=== PATIENT | female | born 1960 | race Caucasian/White ===

== ENCOUNTER 2021-08-25 16:59 | Inpatient (IN) ==
[2021-08-25] MEDS ORDERED: SODIUM CHLORIDE 0.9% 1,000 ML IV STA (18:21)
[2021-08-25] MEDS ORDERED: ONDANSETRON 4 MG/2 ML VIAL IV ONE (18:34)
[2021-08-25] MEDS ORDERED: MORPHINE 2 MG/1 ML SYRINGE IV STA (18:34)
[2021-08-25 18:35] LABS: Basophils # 0.1 10*3/uL (0.0-0.2); Basophils % 0.3 % (0.0-0.8); Hematocrit 47.5 VOL% (35.7-47.0); Hemoglobin 15.8 GM/DL (12.0-16.0); Immature Granulocytes % 0.4 %; Immature Granulocytes Absolute 0.09 #; Lymphocytes % 9.8 % (21.3-54.2); Mean Corpuscular HGB Conc 33.3 GM/DL (32-36); Mean Corpuscular Volume 90.6 FL (87-102); Mean Platelet Volume 10.8 FL (9.6-12.0); Monocytes % 6.2 % (1.7-12.7); Neutrophils % 83.3 % (38.7-73.9); Platelet Count 350 T/CUMM (130-400); Red Blood Count 5.24 MC/CUMM (3.8-5.5); Red Cell Distribution Width 14.6 % (9.3-17.3); White Blood Count 20.3 T/CUMM (4-12)
[2021-08-25 18:47] LABS: Alanine Aminotransferase 36 U/L (13-56); Albumin 3.4 G/DL (3.4-5.0); Alkaline Phosphatase 78 U/L (45-117); Aspartate Amino Transferase 18 U/L (0-37); Bilirubin,Total < 0.39 MG/DL (0.20-1.00); Blood Urea Nitrogen 17 MG/DL (7-18); Calcium 9.2 MG/DL (8.5-10.1); Carbon Dioxide 23 MMOL/L (21-32); Estimated Glom Filtration Rate 87 ML/MIN; Glucose 136 MG/DL (74-106); Osmolality,Calculated 278.7 MOS/KG (273-304); Potassium 3.7 MMOL/L (3.5-5.1); Sodium 138 MMOL/L (136-145); Total Protein 7.3 G/DL (6.4-8.2)
[2021-08-25] MEDS ORDERED: MORPHINE 4 MG/1 ML VIAL ONE (18:52)
[2021-08-25] MEDS ORDERED: PIPERACILLIN/TAZOBACTAM 3,375 MG in SODIUM CHLORIDE 0.9% 100 ML IV STA (19:44)
[2021-08-25] MEDS ORDERED: PIPERACILLIN/TAZOBACTAM 3,375 MG in SODIUM CHLORIDE 0.9% 100 ML IV SCH (20:00)
[2021-08-25 20:12] LABS: Lymphocytes 11 % (20-55); Segmented Neutrophils 84 % (50-85); Total Cells Counted 100
[2021-08-25 20:13] LABS: Platelet Estimate Normal
[2021-08-25] MEDS: SODIUM CHLORIDE 0.9% 1,000 ML IV SCH (22:45)
[2021-08-26] MEDS: ONDANSETRON 4 MG/2 ML VIAL IV PRN ×2 (01:15→18:55)
[2021-08-26] MEDS: MORPHINE 4 MG/1 ML VIAL IV PRN (01:15)
[2021-08-26 05:43] LABS: Basophils # 0.1 10*3/uL (0.0-0.2); Basophils % 0.3 % (0.0-0.8); Eosinophils # 0.1 10*3/uL (0.0-0.87); Eosinophils % 0.3 % (0.00-10.9); Hematocrit 43.4 VOL% (35.7-47.0); Immature Granulocytes % 0.6 %; Lymphocytes # 2.9 10*3/uL (1.4-4.0); Lymphocytes % 17.1 % (21.3-54.2); Mean Corpuscular HGB Conc 32.3 GM/DL (32-36); Mean Corpuscular Volume 93.5 FL (87-102); Mean Platelet Volume 10.8 FL (9.6-12.0); Monocytes % 7.7 % (1.7-12.7); Platelet Count 271 T/CUMM (130-400); Red Blood Count 4.64 MC/CUMM (3.8-5.5); Red Cell Distribution Width 15.1 % (9.3-17.3); White Blood Count 16.8 T/CUMM (4-12)
[2021-08-26 06:02] LABS: Albumin 2.7 G/DL (3.4-5.0); Bilirubin,Total 0.4 MG/DL (0.20-1.00); Calcium 8.5 MG/DL (8.5-10.1); Osmolality,Calculated 276.5 MOS/KG (273-304); Potassium 3.4 MMOL/L (3.5-5.1); Total Protein 5.9 G/DL (6.4-8.2)
[2021-08-26] MEDS ORDERED: hydrALAZINE 20 MG/1 ML VIAL IV PRN (08:30)
[2021-08-26] MEDS: SODIUM CHLORIDE 0.9% 1,000 ML IV SCH ×2 (10:14→16:20)
[2021-08-26] MEDS: PANTOPRAZOLE 40 MG VIAL IV SCH (10:15)
[2021-08-26] MEDS: PIPERACILLIN/TAZOBACTAM 3,375 MG in SODIUM CHLORIDE 0.9% 100 ML IV SCH ×2 (16:21→20:21)
[2021-08-26] MEDS ORDERED: POLYETHYLENE GLYCOL POWDER 255 GM BOTTLE PO ONE (18:00)
[2021-08-26 18:01] LABS: Hematocrit 42.5 VOL% (35.7-47.0); Hemoglobin 13.6 GM/DL (12.0-16.0)
[2021-08-27] MEDS: SODIUM CHLORIDE 0.9% 1,000 ML IV SCH ×4 (00:30→20:53)
[2021-08-27] MEDS: MORPHINE 4 MG/1 ML VIAL IV PRN ×3 (01:57→20:50)
[2021-08-27] MEDS: PIPERACILLIN/TAZOBACTAM 3,375 MG in SODIUM CHLORIDE 0.9% 100 ML IV SCH ×3 (04:46→20:53)
[2021-08-27] MEDS ORDERED: POLYETHYLENE GLYCOL POWDER 255 GM BOTTLE PO ONE (05:00)
[2021-08-27 05:29] LABS: PT Patient Result 10.8 SECS (10.5-12.0)
[2021-08-27 05:45] LABS: Basophils % 0.2 % (0.0-0.8); Eosinophils # 0.2 10*3/uL (0.0-0.87); Eosinophils % 0.9 % (0.00-10.9); Hemoglobin 13.1 GM/DL (12.0-16.0); Immature Granulocytes % 0.5 %; Immature Granulocytes Absolute 0.09 #; Lymphocytes # 3.2 10*3/uL (1.4-4.0); Lymphocytes % 16.9 % (21.3-54.2); Mean Corpuscular Volume 94.3 FL (87-102); Mean Platelet Volume 11.5 FL (9.6-12.0); Monocytes % 7.2 % (1.7-12.7); Neutrophils % 74.3 % (38.7-73.9); Platelet Count 248 T/CUMM (130-400); Red Blood Count 4.35 MC/CUMM (3.8-5.5); White Blood Count 19.1 T/CUMM (4-12)
[2021-08-27 05:49] LABS: Albumin 2.2 G/DL (3.4-5.0); Bilirubin,Total 0.4 MG/DL (0.20-1.00); Calcium 8.5 MG/DL (8.5-10.1); Osmolality,Calculated 276.4 MOS/KG (273-304); Potassium 3.5 MMOL/L (3.5-5.1); Total Protein 5.8 G/DL (6.4-8.2)
[2021-08-27] MEDS: ONDANSETRON 4 MG/2 ML VIAL IV PRN (07:40)
[2021-08-27] MEDS: PANTOPRAZOLE 40 MG VIAL IV SCH (08:37)
[2021-08-27] MEDS ORDERED: NICOTINE 14 MG/24 HR PATCH TRANSDERM PRN (11:54)
[2021-08-27] MEDS: LACTATED RINGERS 1,000 ML IV SCH ×2 (12:33→12:35)
[2021-08-27] MEDS ORDERED: propofoL 200 MG/20 ML VIAL IV ONE ×2 (13:43)
[2021-08-27] MEDS ORDERED: LIDOCAINE 2% 5 ML VIAL ONE (13:43)
[2021-08-28] MEDS ORDERED: ACETAMINOPHEN 325 MG TABLET PO PRN (09:35)
[2021-08-28 09:37] LABS: Basophils % 0.3 % (0.0-0.8); Eosinophils # 0.4 10*3/uL (0.0-0.87); Eosinophils % 2.9 % (0.00-10.9); Hematocrit 39.2 VOL% (35.7-47.0); Hemoglobin 12.7 GM/DL (12.0-16.0); Immature Granulocytes % 0.4 %; Immature Granulocytes Absolute 0.05 #; Lymphocytes # 2.8 10*3/uL (1.4-4.0); Lymphocytes % 23.1 % (21.3-54.2); Mean Corpuscular HGB Conc 32.4 GM/DL (32-36); Mean Corpuscular Volume 92.9 FL (87-102); Mean Platelet Volume 10.9 FL (9.6-12.0); Monocytes % 6.4 % (1.7-12.7); Neutrophils % 66.9 % (38.7-73.9); Platelet Count 266 T/CUMM (130-400); Red Blood Count 4.22 MC/CUMM (3.8-5.5); Red Cell Distribution Width 14.7 % (9.3-17.3)
[2021-08-28] MEDS: PANTOPRAZOLE 40 MG VIAL IV SCH (09:38)
[2021-08-28 10:00] LABS: Alanine Aminotransferase 22 U/L (13-56); Albumin 2.5 G/DL (3.4-5.0); Alkaline Phosphatase 60 U/L (45-117); Aspartate Amino Transferase 11 U/L (0-37); Bilirubin,Total < 0.39 MG/DL (0.20-1.00); Blood Urea Nitrogen 2 MG/DL (7-18); Calcium 8.7 MG/DL (8.5-10.1); Carbon Dioxide 27 MMOL/L (21-32); Estimated Glom Filtration Rate 103 ML/MIN; Glucose 127 MG/DL (74-106); Osmolality,Calculated 274.5 MOS/KG (273-304); Potassium 2.9 MMOL/L (3.5-5.1); Sodium 139 MMOL/L (136-145); Total Protein 6.1 G/DL (6.4-8.2)
[2021-08-28 11:46] VITALS: BP 137/72
[2021-08-28] MEDS ORDERED: POTASSIUM CHLORIDE 20 MEQ TABLET PO ONE (12:15)
== END 2021-08-28 15:21 | disposition home or self-care (01) | DRG 395 ==
LOC: EDUNIT# → EDBD → N.ED 16:59 → N.EDINP 19:53 → N.5E 08-26 16:35
PROVIDERS: ADMIT Family Medicine; ATTEND Family Medicine
PROC: COLONBX (2021-08-27 10:50)